=== PATIENT | female | born 1965 | race Native Hawaiian/Other Pacific Islander ===

== ENCOUNTER 2017-11-02 09:42 | Emergency (ER) | payer BC ==
[~2017-11-02] VITALS: Ht 167.6 cm; Wt 84.4 kg
== END 2017-11-02 11:30 | disposition home or self-care (01) ==
LOC: ED 09:42
DX: S99.912A Unspecified injury of left ankle, initial encounter (principal); X50.9XXA Other and unspecified overexertion or strenuous movements or postures, initial encounter
CPT/HCPCS: 96372; 99283; J1885

== ENCOUNTER 2018-07-05 16:42 | Emergency (ER) | payer BC ==
[~2018-07-05] VITALS: Ht 167.6 cm; Wt 86.2 kg
[2018-07-05 16:45] VITALS: TEMP 97.9
[2018-07-05 18:00] VITALS: BP 124/62
== END 2018-07-05 18:00 | disposition home or self-care (01) ==
LOC: ED 16:42
DX: S93.492A Sprain of other ligament of left ankle, initial encounter (principal); S93.692A Other sprain of left foot, initial encounter; X58.XXXA Exposure to other specified factors, initial encounter; Y92.89 Other specified places as the place of occurrence of the external cause
CPT/HCPCS: 96372; 99283; J1885; L4350

== ENCOUNTER 2021-03-12 07:25 | Emergency (ER) | payer BC ==
[~2021-03-12] VITALS: Ht 167.6 cm; Wt 83.0 kg
[2021-03-12 07:32] VITALS: TEMP 98.4
[2021-03-12 08:39] LABS: POTASSIUM 4.5 mmol/L (3.6-5.2); SODIUM 140 mmol/L (136-145)
[2021-03-12 08:49] LABS: PLATELET COUNT 508 K/uL (152-353)
[2021-03-12 09:40] VITALS: BP 118/68
[2021-03-12 10:20] LABS: PARTIAL THROMBOPLASTIN TIME 29.7 SECONDS (24.5-33.6)
== END 2021-03-12 09:40 | disposition home or self-care (01) ==
LOC: ED 07:25
PROVIDERS: Hospitalist
DX: R07.89 Other chest pain (principal); R09.1 Pleurisy; Z86.16 Personal history of COVID-19
CPT/HCPCS: 80053; 82550; 83880; 84484; 85027; 85379; 85610; 85730; 93005; 96372; 99283; J1885